=== PATIENT | female | born 1935 | race Caucasian/White ===

== ENCOUNTER 2018-03-15 14:37 | Inpatient (IN) | payer MEDICARE, BC ==
[~2018-03-15] VITALS: Ht 157.5 cm; Wt 105.6 kg
[~2018-03-15 14:37] MED LIST: ATORVASTATIN CA40 MG PO; BENADRYL25 M1 PO; BENICAR20 MG PO; BENICAR40 MG OR; CALCIUM +D PO; CARDIZEM CD240 MG OR; CARDIZEM CD240 MG PO; CELEBREX200 MG OR; CIMETIDINE400 M1 PO; CYMBALTA30 MG PO; DARVOCET-N100 MG OR; DOXYCYCL HYC100 MG PO; ELIQUIS5 MG PO; FERROUS SULF325 M1 PO; FERROUS SULF325 M2 PO; FOLIC ACID1 MG PO; GLIMEPIRIDE2 MG PO; GLIMEPIRIDE4 MG PO; GLUCOVANCE5 MG/500 M OR; HEMOCYTE1 TAB OR; HUMALOG KW50 MG/50 K SC; JANUVIA100 MG OR; K-DUR/KLOR-CON20 MEQ PO; LANOXIN125 MCG PO; LASIX 40 MG TAB40 MG PO; LEVOTHYROXIN100 MCG PO; LEVOTHYROXIN75 MCG PO; LEVOXYL75 MCG PO; LEVOXYL88 MCG OR; LIPOFEN150 MG PO; LISINOPRIL2.5 MG PO; LOPRESSOR25 MG PO; LORTAB 5 OR; MEDDOSEPAK PO; METFORMIN500 MG PO; NORCO1 TA1 PO; NOVOLOG FL100 UNIT/M SC; PREDNISONE10 MG PO; PREVACID30 M1 OR; SPIRIVA IN; TRESIBA FL200 UNIT/M SC; ULTRAM50 MG PO; VICTOZA18 MG/3 ML SC; VITAMIN B-121000 MC1 IJ; XANAX0.25 MG OR; ZESTRIL/PRIN5 MG/TA1 PO; [UNRECOGNIZED DRUG - OTHER]; b12
[2018-03-15 15:16] LABS: HEMATOCRIT 40.1 % (37.0-47.0); HEMOGLOBIN 12.4 g/dl (12.0-16.0); IMMATURE GRANULOCYTES 0.4 % (0.0-5.0); MEAN CORPUSCULAR HGB 31.2 pG CALC (26.0-32.0); MEAN CORPUSCULAR HGB CONC 30.9 g/L CALC (32.0-36.0); NEUT# 4.74 thou/uL (2.00-7.15); RED BLOOD COUNT 3.97 mill/uL (4.20-5.60); RED CELL DISTRI WIDTH 13.8 % (11.5-15.5)
[2018-03-15 15:30] LABS: ANION GAP 15 (6-22 (CALC)); BUN 23 mg/dL (8-23); BUN/CREATININE RATIO 21 (12-20 (CALC)); CARBON DIOXIDE 27 mmol/l (22-30); CHLORIDE 103 mmol/l (95-108); CREATININE 1.1 mg/dL (0.5-1.0); GFR 47 ML/MIN (>=60 (CALC)); GFR FOR AFR.AMER. 57 ML/MIN (>=60 (CALC)); SODIUM 141 mmol/l (137-146)
[2018-03-15] MEDS ORDERED: ALPRAZOLAM0.25 MG PO (17:15)
[2018-03-15] MEDS ORDERED: CYCLOBENZAPR5 MG PO (17:16)
[2018-03-15] MEDS ORDERED: BELSOMRA15 MG (17:16)
[2018-03-15] MEDS ORDERED: DOCUSATE CAL240 MG PO (17:16)
[2018-03-15] MEDS ORDERED: LOSARTAN POT50 MG PO (17:17)
[2018-03-15 18:45] VITALS: BP 173/108
[2018-03-15 19:00] VITALS: BP 154/99
[2018-03-15 19:15] VITALS: BP 156/98
[2018-03-15 19:30] VITALS: BP 133/68
[2018-03-15 20:00] VITALS: BP 127/70
[2018-03-15 21:37] LABS: HEMATOCRIT 38.4 % (37.0-47.0); HEMOGLOBIN 11.6 g/dl (12.0-16.0); IMMATURE GRANULOCYTES 0.5 % (0.0-5.0); MEAN CELL VOLUME 102.1 fL CALC (80.0-100.0); MEAN CORPUSCULAR HGB 30.9 pG CALC (26.0-32.0); MEAN CORPUSCULAR HGB CONC 30.2 g/L CALC (32.0-36.0); NEUT# 4.28 thou/uL (2.00-7.15); RED BLOOD COUNT 3.76 mill/uL (4.20-5.60); RED CELL DISTRI WIDTH 13.9 % (11.5-15.5)
[2018-03-15 21:54] LABS: ACT PARTIAL THROMBO TIME 28.5 SECONDS (20.0-32.5); INTERNATIONAL NORMALIZED RATIO 1.1 RATIO (0.7-1.3); PROTHROMBIN TIME 11.9 SECONDS (9.0-12.5)
[2018-03-15 22:00] VITALS: BP 119/71
[2018-03-15 23:09] LABS: URINE BILIRUBIN - DIPSTICK NEGATIVE (NEGATIVE); URINE BLOOD DIPSTICK NEGATIVE (NEGATIVE); URINE COLOR YELLOW; URINE GLUCOSE - DIPSTICK NEGATIVE (NEGATIVE); URINE KETONE NEGATIVE (NEGATIVE); URINE LEUK ESTERASE NEGATIVE (NEGATIVE); URINE NITRITE - DIPSTICK NEGATIVE (Negative); URINE PH 5.5 (4.5-8.0); URINE PROTEIN - DIPSTICK NEGATIVE (NEG-TRACE); URINE UROBILINOGEN - DIPSTICK 0.2 E.U./dL (0.2)
[2018-03-15 23:11] LABS: URINE CLARITY CLEAR
[2018-03-15 23:25] LABS: INFLUENZA A NONE DETECTED (NONE DETECT); INFLUENZA B NONE DETECTED (NONE DETECT)
[2018-03-16] VITALS (25 sets, daily range): BP systolic 100–170; BP diastolic 49–118
[2018-03-16 05:13] LABS: HEMOGLOBIN 11.1 g/dl (12.0-16.0); IMMATURE GRANULOCYTES 0.4 % (0.0-5.0); MEAN CELL VOLUME 101.9 fL CALC (80.0-100.0); MEAN CORPUSCULAR HGB 30.6 pG CALC (26.0-32.0); NEUT# 3.81 thou/uL (2.00-7.15); RED BLOOD COUNT 3.63 mill/uL (4.20-5.60); RED CELL DISTRI WIDTH 13.7 % (11.5-15.5)
[2018-03-16 05:40] LABS: ALBUMIN 2.9 g/dL (3.2-5.0); ALKALINE PHOSPHATASE 68 u/l (38-126); ANION GAP 10 (6-22 (CALC)); BILIRUBIN, TOTAL 0.3 mg/dL (0.0-1.4); BUN 19 mg/dL (8-23); BUN/CREATININE RATIO 25 (12-20 (CALC)); CARBON DIOXIDE 28 mmol/l (22-30); CHLORIDE 105 mmol/l (95-108); CREATININE 0.8 mg/dL (0.5-1.0); GFR > 60 ML/MIN (>=60 (CALC)); GFR FOR AFR.AMER. > 60 ML/MIN (>=60 (CALC)); MAGNESIUM 1.5 mg/dL (1.6-2.3); POTASSIUM 3.9 mmol/l (3.5-5.1); SGOT/AST 13 u/l (9-36); SGPT/ALT 16 u/l (11-66); SODIUM 140 mmol/l (137-146); TOTAL PROTEIN 5.5 g/dL (6.3-8.2)
[2018-03-17] VITALS (23 sets, daily range): BP systolic 91–181; BP diastolic 55–97
[2018-03-18] VITALS (23 sets, daily range): BP systolic 95–197; BP diastolic 56–99
[2018-03-18 05:10] LABS: HEMATOCRIT 39.3 % (37.0-47.0); HEMOGLOBIN 11.9 g/dl (12.0-16.0); IMMATURE GRANULOCYTES 0.1 % (0.0-5.0); MEAN CELL VOLUME 101.8 fL CALC (80.0-100.0); MEAN CORPUSCULAR HGB 30.8 pG CALC (26.0-32.0); MEAN CORPUSCULAR HGB CONC 30.3 g/L CALC (32.0-36.0); NEUT# 2.91 thou/uL (2.00-7.15); RED BLOOD COUNT 3.86 mill/uL (4.20-5.60); RED CELL DISTRI WIDTH 13.5 % (11.5-15.5)
[2018-03-18 05:28] LABS: ALBUMIN 3.1 g/dL (3.2-5.0); ALKALINE PHOSPHATASE 69 u/l (38-126); ANION GAP 12 (6-22 (CALC)); BILIRUBIN, TOTAL 0.5 mg/dL (0.0-1.4); BUN 16 mg/dL (8-23); BUN/CREATININE RATIO 24 (12-20 (CALC)); CARBON DIOXIDE 30 mmol/l (22-30); CHLORIDE 102 mmol/l (95-108); CREATININE 0.7 mg/dL (0.5-1.0); GFR > 60 ML/MIN (>=60 (CALC)); GFR FOR AFR.AMER. > 60 ML/MIN (>=60 (CALC)); MAGNESIUM 1.7 mg/dL (1.6-2.3); POTASSIUM 4.1 mmol/l (3.5-5.1); SGOT/AST 15 u/l (9-36); SGPT/ALT 16 u/l (11-66); SODIUM 140 mmol/l (137-146); TOTAL PROTEIN 5.8 g/dL (6.3-8.2)
[2018-03-18] MEDS ORDERED: TRESIBA FL200 UNIT/M SC (10:59)
[2018-03-19] VITALS (13 sets, daily range): BP systolic 107–166; BP diastolic 42–97
== END 2018-03-19 15:07 | disposition short-term general hospital (02) | DRG 309 ==
LOC: ED 14:37 → ED-I 17:20 → ED 17:47 → ICU 17:48
PROVIDERS: Family Medicine; ADMIT Internal Medicine Nephrology; ATTEND Internal Medicine Nephrology
DX: I48.92 Unspecified atrial flutter (principal); E87.2 Acidosis; Z68.41 Body mass index [BMI] 40.0-44.9, adult; K86.2 Cyst of pancreas; I50.22 Chronic systolic (congestive) heart failure; I11.0 Hypertensive heart disease with heart failure; E78.5 Hyperlipidemia, unspecified; M19.90 Unspecified osteoarthritis, unspecified site; E66.9 Obesity, unspecified; I25.10 Atherosclerotic heart disease of native coronary artery without angina pectoris; K21.9 Gastro-esophageal reflux disease without esophagitis; F32.9 Major depressive disorder, single episode, unspecified; I48.91 Unspecified atrial fibrillation; E53.8 Deficiency of other specified B group vitamins; E11.42 Type 2 diabetes mellitus with diabetic polyneuropathy; E03.9 Hypothyroidism, unspecified; M47.816 Spondylosis without myelopathy or radiculopathy, lumbar region; Z79.01 Long term (current) use of anticoagulants; Z79.4 Long term (current) use of insulin; Z96.652 Presence of left artificial knee joint; Z88.8 Allergy status to other drugs, medicaments and biological substances
CPT/HCPCS: J0282; J0692; J1160; Q9967

== ENCOUNTER → 2018-08-23 | Outpatient (REF) | payer MEDICARE, BC ==
[~2018-08-23] MED LIST changes: +ALPRAZOLAM0.25 MG PO; +BELSOMRA15 MG; +CYCLOBENZAPR5 MG PO; +DOCUSATE CAL240 MG PO; +LOSARTAN POT50 MG PO
== END | disposition home or self-care (01) ==
LOC: RT 08-16 10:30
PROVIDERS: ATTEND Internal Medicine
DX: R06.02 Shortness of breath (principal)

== ENCOUNTER 2022-10-20 11:50 | Inpatient (IN) | payer MEDICARE, BC ==
[~2022-10-20] VITALS: Ht 157.5 cm; Wt 62.0 kg
[~2022-10-20 11:50] MED LIST changes: +ARMOUR THYRO120 MG PO; +BACTRIM DS1 TAB PO; +DEXAMETHASON6 MG PO; +HYDROCO/APAP1 TA9 PO; +NOVOLOG FL100 UNIT/M; +PRIMIDONE50 MG PO; +TIZANIDINE2 MG PO
--- NOTE | 2022-10-20 12:10 | NUR ---
ARRIVED ON UNIT @ 1210 TRANSPORTED VIA W/C BY VOLUNTEER DIRECT ADMIT. ALERT AND ORIENTED X 3, WEIGHED AND AMBULATED TO BED, ORIENTED TO ROOM AND CALL GROVES AND SETTLED IN ROOM. 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 SHE DENIED PAIN, REPORTED SHE HAD RECENT FALL AT HOME WHEN SHE OBTAINED BRUISING TO HER LEFT BREAST AND UPPER BACK AT BASE OF HER LEFT SHOULDER. WILL CONTINUE TO MONITOR AND ADDRESS NEEDS.
[2022-10-20 12:25] VITALS: BP 139/70
--- NOTE | 2022-10-20 13:00 | NUR ---
DR SIMONS ROUNDED AND DISCUSSED PLAN WITH PT WHO STATED UNDERSTANDING.
[2022-10-20 15:05] VITALS: BP 159/66
--- NOTE | 2022-10-20 16:00 | NUR ---
ASSISTED TO BSC AND BR THEN BACK TO BED.
[2022-10-20 19:17] VITALS: BP 176/100
--- NOTE | 2022-10-20 19:31 | NUR ---
pt had a glucose of 239 @1925.
--- NOTE | 2022-10-20 19:34 | NUR ---
pt had a BP of 176/100 @1915. Nurse Amber and Yulissa notified @1919.
[2022-10-20 20:06] VITALS: BP 166/69
--- NOTE | 2022-10-20 20:07 | NUR ---
PT IS ALERT AND. REPORT RECIVED. PT APPEARS C OMFORTABLE AT THIS TIME.
[2022-10-20 20:49] LABS: BASO% 0.4 % (0-3); EOS% 1.5 % (0-8); HEMATOCRIT 34.2 % (37.0-47.0); HEMOGLOBIN 10.7 g/dl (12.0-16.0); LYMPH% 39.8 % (15-41); MEAN CELL VOLUME 98.6 fL CALC (80.0-100.0); MEAN CORPUSCULAR HGB 30.8 pG CALC (26.0-32.0); MEAN CORPUSCULAR HGB CONC 31.3 g/dL CAL (32.0-36.0); MONO% 8.3 % (2-13); NEUT# 4.8 thou/uL (2.00-7.15); RED BLOOD COUNT 3.47 mill/uL (4.20-5.60); RED CELL DISTRI WIDTH 12.9 % (11.5-15.5)
[2022-10-20 21:06] LABS: ALBUMIN 2.8 g/dL (3.2-5.0); ALKALINE PHOSPHATASE 59 u/l (38-126); ANION GAP 12 (6-22 (CALC)); BUN 18 mg/dL (8-23); BUN/CREATININE RATIO 26 (12-20 (CALC)); CARBON DIOXIDE 29 mmol/l (22-30); CHLORIDE 98 mmol/l (95-108); CREATININE 0.7 mg/dL (0.5-1.0); GFR FOR AFR.AMER. > 60 ML/MIN (>=60 (CALC)); GFR OTHER RACES > 60 ML/MIN (>=60 (CALC)); POTASSIUM 3.7 mmol/l (3.5-5.1); SGOT/AST 22 u/l (9-36); SODIUM 135 mmol/l (137-146); TOTAL PROTEIN 5.6 g/dL (6.3-8.2)
[2022-10-20 21:09] LABS: BILIRUBIN, TOTAL 0.2 mg/dL (0.02-1.3)
[2022-10-21] VITALS (8 sets, daily range): BP systolic 118–178; BP diastolic 49–84
--- NOTE | 2022-10-21 02:10 | NUR ---
PTS IV SITE LEFT FOREARM RED WITH SWELLING. REMOVED. COLD PACK APPLIED.
[2022-10-21 06:00] LABS: BASO% 0.4 % (0-3); EOS% 1.8 % (0-8); HEMATOCRIT 35.6 % (37.0-47.0); HEMOGLOBIN 11.3 g/dl (12.0-16.0); IMMATURE GRANULOCYTES 1.2 % (0.0-5.0); LYMPH% 46.6 % (15-41); MEAN CELL VOLUME 98.3 fL CALC (80.0-100.0); MEAN CORPUSCULAR HGB 31.2 pG CALC (26.0-32.0); MEAN CORPUSCULAR HGB CONC 31.7 g/dL CAL (32.0-36.0); MONO% 8.3 % (2-13); NEUT# 4.27 thou/uL (2.00-7.15); NEUT% 41.7 % (42-76); RED BLOOD COUNT 3.62 mill/uL (4.20-5.60); RED CELL DISTRI WIDTH 12.8 % (11.5-15.5)
[2022-10-21 06:10] LABS: ALBUMIN 3.2 g/dL (3.2-5.0); ALKALINE PHOSPHATASE 55 u/l (38-126); ANION GAP 9 (6-22 (CALC)); BUN 17 mg/dL (8-23); BUN/CREATININE RATIO 28 (12-20 (CALC)); CARBON DIOXIDE 30 mmol/l (22-30); CHLORIDE 100 mmol/l (95-108); CREATININE 0.6 mg/dL (0.5-1.0); GFR FOR AFR.AMER. > 60 ML/MIN (>=60 (CALC)); GFR OTHER RACES > 60 ML/MIN (>=60 (CALC)); POTASSIUM 3.6 mmol/l (3.5-5.1); SGOT/AST 21 u/l (9-36); SODIUM 135 mmol/l (137-146); TOTAL PROTEIN 6.3 g/dL (6.3-8.2)
--- NOTE | 2022-10-21 06:17 | NUR ---
PT A/O. PLEASANT . AVNI ARRIETA LOCK LEFT FOREARM. RECIVED VANCO. IV FLUIS AT 100HR. VOIDED X 5 ON COMMODE. NPO AFTER MIDNIGHT. CALL LIGHT IN REACH
[2022-10-21 06:21] LABS: BILIRUBIN, TOTAL 0.3 mg/dL (0.02-1.3)
--- NOTE | 2022-10-21 08:00 | NUR ---
PT ALERT AND ORIENTED X3.ABLE TO MAKE NEEDS KNOWN.NO C/O PAIN.22G LFA INFUSING NS @ 100ML/HR.PT NPO.RESPIRATIONS EVEN AND UNLABORED.TO HAVE PROCEDURE TODAY.CONSENTS SIGNED.SAFETY PRECAUTIONS IN PLACE.CALL LIGHT WITHIN REACH.
--- NOTE | 2022-10-21 16:00 | NUR ---
PT HAD RETURNED FROM SURGERY @ 1230.ORDERED SHOE WAS APPLIED TO LEFT FOOT.DRESSING TO LEFT TOE.PT WITH N/O PAIN AT THIS TIME.BP ELEVATED AND PRN HYDRALAZINE ADMINISTERD.WILL RECHECK BP.DAUGHTER VISTING PT AND BROUGHT PT FOOD FROM [employer].PT EDUCATED ABOUT DIET.BM TODAY.RESPIRATIONS EVEN,UNLABORED.NO DITRESS NOTED.USES BSC WITH 1X ASSIST.SAFETY PRECAUTIONS IN PLACE.CALL LIGHT WITHIN REACH.
[2022-10-22] VITALS (7 sets, daily range): BP systolic 116–163; BP diastolic 51–69
--- NOTE | 2022-10-22 00:13 | NUR ---
recived bedside report at begining of shift. pt sitting in recliner with feet elevated. dsg and protective shoe on left foot dry and intact. iv fluids infsuing as ordered. pleasant. alert and oriented x 3. call light in reach
--- NOTE | 2022-10-22 04:14 | NUR ---
PT SLEEPING WELL. LT FOOT DSG DRY AND INTACT. ELEVATED ON PILLOW. POST SURGICAL SHOW FOR OOB TO COMMODE. HEAL TOUCH WB. DENIES PAIN. SCD ON RIGHT LEG. IV FLUIDS AND ABX GIVEN ORDERED.
[2022-10-22 07:12] LABS: BASO% 0.3 % (0-3); EOS% 1.6 % (0-8); LYMPH% 34.4 % (15-41); MEAN CELL VOLUME 99.3 fL CALC (80.0-100.0); MEAN CORPUSCULAR HGB 31.2 pG CALC (26.0-32.0); MEAN CORPUSCULAR HGB CONC 31.4 g/dL CAL (32.0-36.0); MONO% 7.8 % (2-13); NEUT# 4.23 thou/uL (2.00-7.15); NEUT% 54.9 % (42-76); RED BLOOD COUNT 2.92 mill/uL (4.20-5.60); RED CELL DISTRI WIDTH 13.1 % (11.5-15.5)
[2022-10-22 07:13] LABS: HEMOGLOBIN 9.1 g/dl (12.0-16.0)
[2022-10-22 07:16] LABS: ALBUMIN 2.5 g/dL (3.2-5.0); ALKALINE PHOSPHATASE 49 u/l (38-126); ANION GAP 7 (6-22 (CALC)); BILIRUBIN, TOTAL 0.3 mg/dL (0.02-1.3); BUN 11 mg/dL (8-23); BUN/CREATININE RATIO 21 (12-20 (CALC)); CARBON DIOXIDE 27 mmol/l (22-30); CHLORIDE 103 mmol/l (95-108); CREATININE 0.5 mg/dL (0.5-1.0); GFR FOR AFR.AMER. > 60 ML/MIN (>=60 (CALC)); GFR OTHER RACES > 60 ML/MIN (>=60 (CALC)); POTASSIUM 3.3 mmol/l (3.5-5.1); SGOT/AST 16 u/l (9-36); SODIUM 134 mmol/l (137-146)
--- NOTE | 2022-10-22 10:08 | NUR ---
S: LISHA HERNANDEZ is a 87 F who presents with osteomyelitis of left great toe. All medications in patient's chart were reviewed. O: VS: BP 139/70, P 65, RR 18,T 97.4 F W 62 kg, HT 5 Ft 2in, Scr=0.5, CrCl= 34.3 ml/min A: Blood culture is pending. Urine culture is pending. P: Patient is on cefepime 1 gm Q12h IV. Vancomycin ordered for pharmacy to dose. Start Vancomycin 1000 mg IV Q24H. Vancomycin trough is drawn before the 4th dose on 10/23/222029. Vancomycin goal trough is between 15-20 mcg/ml. Pharmacy will follow and advise on antibiotics use as needed.
--- NOTE | 2022-10-23 00:20 | NUR ---
Pt is laying in bed trying to sleep. Per pt " i havent slept all day and i'm trying to sleep." complained of feeling shakey blood sugar and vital signs checked. will continue to monitor.
[2022-10-23 04:00] VITALS: BP 138/62
--- NOTE | 2022-10-23 04:00 | NUR ---
PT RESTING IN BED, NO SIGNS OF DISTRESS NOTED, RESP EVEN AND UNLABORED. VOICES NO NEEDS OR COMPLAINTS AT THIS TIME. CALL LIGHT IN REACH,CONTINUE TO MONITOR.
[2022-10-23 04:11] VITALS: BP 138/62
[2022-10-23 05:19] LABS: BASO% 0.5 % (0-3); EOS% 1.7 % (0-8); HEMATOCRIT 28.3 % (37.0-47.0); HEMOGLOBIN 8.7 g/dl (12.0-16.0); IMMATURE GRANULOCYTES 0.9 % (0.0-5.0); LYMPH% 46.5 % (15-41); MEAN CELL VOLUME 101.8 fL CALC (80.0-100.0); MEAN CORPUSCULAR HGB 31.3 pG CALC (26.0-32.0); MEAN CORPUSCULAR HGB CONC 30.7 g/dL CAL (32.0-36.0); MONO% 8.1 % (2-13); NEUT# 3.29 thou/uL (2.00-7.15); NEUT% 42.3 % (42-76); RED BLOOD COUNT 2.78 mill/uL (4.20-5.60); RED CELL DISTRI WIDTH 13.1 % (11.5-15.5)
[2022-10-23 05:38] LABS: ALBUMIN 2.7 g/dL (3.2-5.0); ALKALINE PHOSPHATASE 45 u/l (38-126); ANION GAP 8 (6-22 (CALC)); BILIRUBIN, TOTAL 0.2 mg/dL (0.02-1.3); BUN 11 mg/dL (8-23); BUN/CREATININE RATIO 22 (12-20 (CALC)); CARBON DIOXIDE 27 mmol/l (22-30); CHLORIDE 104 mmol/l (95-108); CREATININE 0.5 mg/dL (0.5-1.0); GFR FOR AFR.AMER. > 60 ML/MIN (>=60 (CALC)); GFR OTHER RACES > 60 ML/MIN (>=60 (CALC)); POTASSIUM 3.4 mmol/l (3.5-5.1); SGOT/AST 16 u/l (9-36); SODIUM 135 mmol/l (137-146); TOTAL PROTEIN 5.2 g/dL (6.3-8.2)
[2022-10-23 07:00] VITALS: BP 174/79
--- NOTE | 2022-10-23 07:00 | NUR ---
RECEIVED REPORT FROM PM NURSE. PT RESTING IN BED. VSS. ALL SAFETY MEASURES IN PLACE. NO NEEDS AT THIS TIME.
[2022-10-23 09:37] LABS: C. DIFFICILE TOXIN A&B NEGATIVE (NEGATIVE)
[2022-10-23 14:50] VITALS: BP 148/61
[2022-10-23 18:31] VITALS: BP 152/63
--- NOTE | 2022-10-23 19:39 | NUR ---
RECEIVED BEDSIDE SHIFT REPORT. PT IS ALERT AND ORIENTED. PLEASANT. CALL LIGHT IS IN REACH.
--- NOTE | 2022-10-23 22:37 | NUR ---
[facility]SA SWAB NARES OBTAINED AND SENT TO LAB
[2022-10-24 04:26] VITALS: BP 136/65
--- NOTE | 2022-10-24 05:38 | NUR ---
PT SLEPT WELL. USING COMMODE WITH MINIMAL ASSIST. NO LOOSE STOOLS THIS SHIFT. CALL LIGHT IN REACH
[2022-10-24 06:19] VITALS: BP 145/68
[2022-10-24 07:26] LABS: HEMATOCRIT 31.6 % (37.0-47.0); HEMOGLOBIN 9.5 g/dl (12.0-16.0); MEAN CELL VOLUME 101.9 fL CALC (80.0-100.0); MEAN CORPUSCULAR HGB 30.6 pG CALC (26.0-32.0); MEAN CORPUSCULAR HGB CONC 30.1 g/dL CAL (32.0-36.0); RED BLOOD COUNT 3.1 mill/uL (4.20-5.60); RED CELL DISTRI WIDTH 13.2 % (11.5-15.5)
[2022-10-24 07:37] LABS: ALBUMIN 3.2 g/dL (3.2-5.0); ALKALINE PHOSPHATASE 60 u/l (38-126); ANION GAP 10 (6-22 (CALC)); BILIRUBIN, TOTAL 0.2 mg/dL (0.02-1.3); BUN 10 mg/dL (8-23); BUN/CREATININE RATIO 18 (12-20 (CALC)); CARBON DIOXIDE 27 mmol/l (22-30); CHLORIDE 101 mmol/l (95-108); CREATININE 0.5 mg/dL (0.5-1.0); GFR FOR AFR.AMER. > 60 ML/MIN (>=60 (CALC)); GFR OTHER RACES > 60 ML/MIN (>=60 (CALC)); POTASSIUM 3.3 mmol/l (3.5-5.1); SGOT/AST 21 u/l (9-36); SODIUM 135 mmol/l (137-146)
--- NOTE | 2022-10-24 08:00 | NUR ---
PT ALERT AND ORIENTED.ABLE TO MAKE NEEDS KNOWN.NO C/O PAIN AT THIS TIME.DRESSING TO LEFT FOOT CDI.ASSIST X1 FOR TRANSFERS TO BSC.22G RFA INFUSING NS @ 100ML/HR.RESPIRATIONS EVEN,UNLABORED.NO DISTRESS NOTED.SAFETY PRECAUTIONS IN PLACE.CALL LIGHT WITHIN REACH.
[2022-10-24 08:15] LABS: MAGNESIUM 1.8 mg/dL (1.6-2.3); TOTAL PROTEIN 6.3 g/dL (6.3-8.2)
[2022-10-24 09:08] VITALS: BP 146/62
--- NOTE | 2022-10-24 10:08 | NUR ---
PLACED CONSULT IN FOR DR CABRAL FOR INFECTIOUS DISEASE.
[2022-10-24] MEDS ORDERED: DOXYCYCLINE100 MG PO (11:47)
[2022-10-24] MEDS ORDERED: OMNICEF300 MG PO (11:48)
--- NOTE | 2022-10-24 12:00 | NUR ---
PT IN RECLINER WITH LEGS ELEVATED.TO BE DISCHARGED HOME WITH DAUGHTER TODAY.IV TO RFA LEAKING AND MD MADE AWARE.ORDERED TO DISCONTINUE IV.SAFETY PRECAUTIONS IN PLACE.CALL LIGHT WITHIN REACH.
--- NOTE | 2022-10-24 14:25 | NUR ---
PT DISCHARGE INSTRUCTIONS VERBALIZED WITH PT DAUGHTER IN AGREEANCE.PT BELONGINGS AND DISHCHARGE INSTRUCTIONS WITH PT UPON BEING DISCHARGED FROM UNIT.
--- NOTE | 2022-10-24 15:23 | NUR ---
S: LISHA HERNANDEZ is a 87 F who presents with osteomyelitis of left great toe. All medications in patient's chart were reviewed. O: VS: BP 142/62, P 78, RR 18,T 98.7F W 62 kg, HT 5 FT 2IN, Scr= 0.5, CrCl= 34.3 ml/min A: Blood culture is pending. P: Patient is on cefepime 1gm Q12H IV. Vancomycin ordered for pharmacy to dose. Increase vancomycin dose to 1gm IV Q12H. Vancomycin trough is drawn before the 4th dose on 10/25/2022 at 08:30. Vancomycin goal trough is between 15-20 mcg/ml. Pharmacy will follow and advise on antibiotics use as needed.
== END 2022-10-24 14:14 | disposition home health service (06) | DRG 617 ==
LOC: MS2 11:50
PROVIDERS: Internal Medicine; Nurse Practitioner Family; ADMIT Internal Medicine; ATTEND Internal Medicine
PROC: 0Y6Q0Z0 Detachment at Left 1st Toe, Complete, Open Approach (ICD-10-PCS; principal; 2022-10-21)
PROC: 0QBP0ZZ Excision of Left Metatarsal, Open Approach (ICD-10-PCS; 2022-10-21)
PROC: 0HXNXZZ Transfer Left Foot Skin, External Approach (ICD-10-PCS; 2022-10-21)
DX: E11.69 Type 2 diabetes mellitus with other specified complication (principal); I50.22 Chronic systolic (congestive) heart failure; M86.8X7 Other osteomyelitis, ankle and foot; L97.528 Non-pressure chronic ulcer of other part of left foot with other specified severity; E11.621 Type 2 diabetes mellitus with foot ulcer; L03.032 Cellulitis of left toe; I11.0 Hypertensive heart disease with heart failure; I48.91 Unspecified atrial fibrillation; E03.9 Hypothyroidism, unspecified; E78.5 Hyperlipidemia, unspecified; R19.7 Diarrhea, unspecified; K21.9 Gastro-esophageal reflux disease without esophagitis; S92.422A Displaced fracture of distal phalanx of left great toe, initial encounter for closed fracture; X58.XXXA Exposure to other specified factors, initial encounter; Z96.651 Presence of right artificial knee joint; Z79.4 Long term (current) use of insulin; Z86.16 Personal history of COVID-19
CPT/HCPCS: J0692; J1650; J3475; J3490